=== PATIENT | male | born 1970 | race Caucasian/White ===

== ENCOUNTER 2018-12-19 16:54 | Emergency (ER) | payer BC ==
[2018-12-19 17:07] VITALS: BP 167/132; PULSE 84; RESP 16; TEMP 97.8
--- NOTE | 2018-12-19 17:36 | XR ---
PROCEDURE: XR finger RT - 3V DATE AND TIME: 12/19/2018 5:26 PM CLINICAL INDICATION: PHH; middle, r/o foreign body TECHNIQUE: AP and lateral and oblique middle finger radiographs. COMPARISON: None FINDINGS: Bones and joints: There is no fracture or malalignment. The bones and joints are unremarkable. Soft tissues: There is mild diffuse soft tissue swelling. There is curvilinear linear metallic opacit y related to the fingertip, seen on all views. No other metallic opacity. IMPRESSION: Fingertip curvilinear metallic opacity.
--- NOTE | 2018-12-19 17:43 | ED ---
Wound/Laceration HPI - General Chief Complaint: Wound/Laceration Stated Complaint: laceration on rt middle finger Time Seen by Provider: 12/19/18 16:57 Source: patient Mode of arrival: ambulatory Limitations: no limitations - History of Present Illness Initial Comments: 48-year-old male presenting for chief complaint of right middle finger laceration. He states he was at home when he reached into a bucket of metal he states his right middle finger was caught he is not sure on what. Patient states that there is a flap of skin. Patient states that he is able to fully range at the finger he denies any weakness. Patient states bleeding is controlled he applied a bandage. Patient denies numbness tingling or loss sensation. Patient denies any other areas of injury. Patient states his tetanus is updated last year. - Related Data Previous Rx's Medication Instructions Recorded Cephalexin [Keflex] 500 mg PO Q12HR 5 Days #10 cap 12/19/18 Allergies Allergy/AdvReac Type Severity Reaction Status Date / Time No Known Allergies Allergy Verified 12/19/18 17:07 Review of Systems ROS Statement: Those systems with pertinent positive or pertinent negative responses have been documented in the HPI. ROS Other: All systems not noted in ROS Statement are negative. Past Medical History Past Medical History: No Reported History History of Any Multi-Drug Resistant Organisms: None Reported Past Surgical History: Orthopedic Surgery Past Psychological History: No Psychological Hx Reported Smoking Status: Current every day smoker Past Alcohol Use History: Occasional Past Drug Use History: None Reported General Exam - General Exam Comments Initial Comments: General: The patient is awake and alert, in no distress, and does not appear acutely ill. Eye: Pupils are equal, round and reactive to light, extra-ocular movements are intact. No nystagmus. There is normal conjunctiva bilaterally. No signs of icterus. Cardiovascular: There is a regular rate and rhythm. No murmur, rub or gallop is appreciated. Respiratory: Lungs are clear to auscultation, respirations are non-labored, breath sounds are equal. No wheezes, stridor, rales, or rhonchi. Musculoskeletal: Normal ROM, no tenderness. Strength 5/5. Sensation intact. Radial pulses equal bilaterally 2+. Neurological: A&O x 3. CN II-XII intact, There are no obvious motor or sensory deficits. Coordination appears grossly intact. Speech is normal. Skin: Skin is warm and dry and no rashes or lesions are noted. [id number] circular skin flap over the knuckle of the PIP joint. No evidence of tendon exposure, foreign body. Superficial. Bleeding controlled. Psychiatric: Cooperative, appropriate mood & affect, normal judgment. Limitations: no limitations Course Vital Signs 12/19/18 17:03 Temperature 97.8 F Pulse Rate 84 Respiratory 16 Rate Blood Pressure 167/132 O2 Sat by Pulse 98 Oximetry Procedures - Laceration Laceration #1 Consent Obtained: verbal consent Indication: laceration Site: hand (Middle finger) Description: flap, irregular Pre-repair: wound explored, irrigated extensively, deep structures intact Type of Sutures: nylon Size of Sutures: 5-0 Number of Sutures: 3 Technique: simple, interrupted Patient Tolerated Procedure: well, no complications Additional Comments: irrigated, cleansesd prior. Discussed local numbing agents, patient prefer to continue without lidocaine given sutures estimated to be 3 and he states he "hated the lidocaine last time". tolerated procedure well. flap tacked down. no evidence of tendon injury, Medical Decision Making - Medical Decision Making 48-year-old male presenting for laceration. Evidence of skin flap on examination. No evidence of tendon injury or foreign body. There is metal under nails. He works with metals otherwise on imaging studies ears no acute osseous injury. Patient has full range of motion at MTP, DIP and PIP joints. No decrease in strength. Patinent NV intact. Patient appears well. laceration repaired. patient tetanus UTD> Patient discharged after discussing signs of infection, return parameters. Disposition Clinical Impression: Flap laceration of skin, Finger laceration Disposition: HOME SELF-CARE Condition: Good Instructions (If sedation given, give patient instructions): Care For Your Stitches (ED), Finger Laceration (ED) Additional Instructions: Please use medication as discussed. Please follow-up in 7 days for removal of sutures. Dont submerge hand in baths, ponds, pools, or any water. Showers are allowed. Changed bandage daily. Please return to emergency room if the symptoms increase or worsen or for any other concerns, including any type of limitations in movement of finger or in strength of finger. Prescriptions: Cephalexin [Keflex] 500 mg PO Q12HR 5 Days #10 cap Is patient prescribed a controlled substance at d/c from ED?: No Referrals: Judd Anna MD [Primary Care Provider] - 1-2 days Time of Disposition: 18:01
== END 2018-12-19 18:06 | disposition home or self-care (01) ==
LOC: EC 16:54
DX: S61.212A Laceration without foreign body of right middle finger without damage to nail, initial encounter (principal); F17.200 Nicotine dependence, unspecified, uncomplicated; W26.9XXA Contact with unspecified sharp object(s), initial encounter
CPT/HCPCS: 12001; 99283

== ENCOUNTER → 2023-01-05 | Outpatient (CLI) | payer OTHER ==
--- NOTE | 2023-01-05 15:32 | CT ---
EXAMINATION TYPE: CT upper extremity LT wo con CT DLP: 105.6 mGycm, Automated exposure control for dose reduction was used. 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 Additional c oronal and sagittal reformatted images and soft tissue and bone window were obtained for review. FINDINGS: Postsurgical changes of the left thumb with fixation screw crossing the first digit DIP ana maría nt. There is fusion of the joint. No surrounding periprostatic lucency. No acute fracture or dislocat ion. No soft tissue swelling. IMPRESSION: 1. Post surgical changes from fixation of the first digit DIP joint. There is fusion changes identif ied. 2. No acute fracture or dislocation.
== END | disposition home or self-care (01) ==
LOC: RADCTMAIN 14:56
PROVIDERS: ATTEND Orthopaedic Surgery Hand Surgery
DX: S62.52 Fracture of distal phalanx of thumb (principal)

== ENCOUNTER → 2023-01-25 | Outpatient (CLI) | payer OTHER ==
[2023-01-25 16:32] LABS: Basophils # (A) 0.09 X 10*3/uL (0.00-0.10); Basophils % (A) 1.1 %; Eosinophils # (A) 0.19 X 10*3/uL (0.04-0.35); Eosinophils % (A) 2.3 %; HCT 49.1 % (39.6-50.0); HGB 16.7 d/dL (13.0-17.0); Lymphocytes # (A) 1.73 X 10*3/uL (0.90-5.00); Lymphocytes % (A) 20.9 %; MCH 32.2 pg (27.0-32.0); MCV 94.6 FL (80.0-97.0); Mean Platelet Volume 9.4 FL (9.5-12.2); Monocytes # (A) 0.65 X 10*3/uL (0.20-1.00); Monocytes % (A) 7.9 %; NRBC Per 100 WBC 0 X 10*3/uL (0.00-0.01); Neutrophils # (A) 5.55 X 10*3/uL (1.80-7.70); Neutrophils % (A) 67.2 %; Platelet Count 238 X 10*3/uL (140-440); RBC 5.19 X 10*6/uL (4.40-5.60); RDW 12.3 % (11.5-14.5); WBC 8.26 X 10*3/uL (4.50-10.00)
[2023-01-25 16:53] LABS: Blood Urea Nitrogen 10.5 mg/dL (9.0-27.0); Calcium 9.7 mg/dL (8.7-10.3); Carbon Dioxide 26.1 mmol/L (21.6-31.8); Chloride 99 mmol/L (96-109); Glucose 99 mg/dL (70-110); Potassium 4.6 mmol/L (3.5-5.5); Sodium 136 mmol/L (135-145)
== END | disposition home or self-care (01) ==
LOC: LABWHC1 08:17
PROVIDERS: ATTEND Orthopaedic Surgery Hand Surgery
DX: Z01.812 Encounter for preprocedural laboratory examination (principal); I49.8 Other specified cardiac arrhythmias; I51.7 Cardiomegaly; R94.31 Abnormal electrocardiogram [ECG] [EKG]
CPT/HCPCS: 36415; 80048; 85025; 93005

== ENCOUNTER 2023-02-08 12:35 | Day surgery (SDC) | payer OTHER ==
--- NOTE | 2023-02-07 10:38 | P.HPOR ---
History of Present Illness H&P Date: 02/07/23 Subjective: This is a 52 year old male that presents today for initial evaluation regarding a long-standing history of left thumb pain. Patient states originally he underwent a left thumb IP joint fusion in [address] desai due to posttraumatic arthritis. At that time he thinks the arthrodesis procedure was performed with temporary K wires and states that he was in a cast for 9 months afterwards. After successful fusion was achieved he states he had no issues up until 1 year ago. He was then been seen by Dr. Allan Saeed and recently underwent a revision left thumb IP joint arthrodesis on 09/02/2022 due to a fracture that occurred through the arthrodesis site, per the patient. Patient states since the most recent revision arthrodesis he is unhappy with the appearance of the thumb due to the significant amount of angulation in regards to the flexion and radial deviation that the thumb was fused in. He also has a significant amount of pain over the dorsal aspect of the thumb and feels that the screw head is prominent. He denies any new or recent injury since his most recent surgery in August.He states it is effecting his ability to pinch and grasp due to the thumb point in the opposite direction of the index finger. Physical Examination: LUE: AIN/PIN/Radial/Ulnar/Median motor intact. Radial/Ulnar/Median SILT. 2+/4 Radial/Ulnar pulses palpated. 5/5 APB, 5/5 FDI. Negative Finkelsteins, negative CMC grind, negative Durkan's compression. Thumb held in 40 degrees of flexion, 15 degrees of radial deviation at IP joint with TTP over dorsal thumb. Post surgical scarring seen. No appreciable motion at the fusion site. Imaging: X-Rays of the left thumb 2 view taken in the office today demonstrates a left thumb IP joint arthrodesis with headless screw compression fixation. On AP, there is approximately 13 of radial deviation and 42 of thumb IP flexion visible on lateral. Prominence of IP joint screw head. 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 I explained the complexity of the situation. The roughly 40 degrees of flexion and 15 degrees of coronal malalignment are causing him significant functional deficits and he still has a considerable amount of pain on a daily basis. I recommend a computed tomography scan for evaluation of nonunion. We discussed the overall alignment of the thumb could be improved and that I would aim to revise the arthrodesis to approximately 15-20 of thumb IP flexion with neutral coronal alignment. This would likely have to involve removing the current headless compression screw and using autologous versus allograft bone graft to fill the void, followed by temporary K wire fixation until fusion is seen. Risks and benefits of surgery including bleeding, infection, nonunion, damage to surrounding tissue, need for further surgery, residual numbness were discussed and the patient wished to go forward with surgery. He is scheduled for a left thumb IP joint arthrodesis with bone graft and left thumb deep orthopedic implant removal. The patient was agreeable with this plan. CC: Trista Bhakta MD -Se Espinoza DO Orthopedic Hand/Upper Extremity Surgeon Past Medical History Past Medical History: No Reported History History of Any Multi-Drug Resistant Organisms: None Reported Past Surgical History: Orthopedic Surgery Additional Past Surgical History / Comment(s): SEPTEMBER 02, 2022 REPAIR OF LEFT THUMB BAD RESULTS (DONE AT [facility]). Past Anesthesia/Blood Transfusion Reactions: No Reported Reaction Past Psychological History: No Psychological Hx Reported Smoking Status: Current every day smoker Past Alcohol Use History: Occasional Additional Past Alcohol Use History / Comment(s): SMOKED SINCE 16 YR. 3/4 PPD. Past Drug Use History: None Reported - Past Family History Mother Family Medical History: CVA/TIA Medications and Allergies Home Medications Medication Instructions Recorded Confirmed Type No Known Home Medications 02/03/23 02/03/23 History Allergies Allergy/AdvReac Type Severity Reaction Status Date / Time bee venom protein (honey bee) Allergy Swelling Verified 02/03/23 15:20 Physical Examination Osteopathic Statement: *. No significant issues noted on an osteopathic structural exam other than those noted in the History and Physical/Consult.
[~2023-02-08 12:35] MED LIST: DEXAMETHASONE SOD PHOSPHATE 4 MG/ML 1 ML VIAL IV ONE; HYDROmorphone 0.5 MG/0.5 ML SYRINGE IVP PRN; LACTATED RINGERS 1,000 ML IV SCH; LIDOCAINE 1% (10MG/ML) FOR IV START INTRADERMA PRN; ONDANSETRON 4 MG/2 ML VIAL IVP ONE; droPERidol 5 MG/2 ML VIAL IVP ONE
[2023-02-08] MEDS ORDERED: LIDOCAINE 2% INJ 20 MG/ML (2 ML VIAL) ONE (14:46)
[2023-02-08] MEDS ORDERED: fentaNYL (PF) 50 MCG/ML 2 ML AMP ONE (14:46)
[2023-02-08] MEDS ORDERED: HYDROmorphone (PF) 1 MG/ML ONE (14:46)
[2023-02-08] MEDS ORDERED: MIDAZOLAM 2 MG/2 ML VIAL ONE (14:46)
[2023-02-08] MEDS ORDERED: PROPOFOL 10 MG/ML 20 ML VIAL IV ONE (14:46)
[2023-02-08] MEDS ORDERED: BUPIVACAINE (PF) 0.5% 30 ML VIAL SQ ONE ×2 (15:04→15:57)
[2023-02-08 16:12] VITALS: TEMP 98.6
[2023-02-08] MEDS ORDERED: HYDROmorphone 0.5 MG/0.5 ML SYRINGE IVP ONE (16:32)
[2023-02-08] MEDS ORDERED: HYDROcodone/APAP 5-325MG 1 EACH TAB ONE (16:39)
[2023-02-08] MEDS ORDERED: HYDROcodone/APAP 5-325MG 1 EACH TAB PO ONE (16:45)
[2023-02-08 16:48] VITALS: PULSE 99
[2023-02-08 17:11] VITALS: BP 171/83; RESP 15
--- NOTE | 2023-02-08 17:21 | P.OP ---
Date of Procedure: 02/08/23 Preoperative Diagnosis: 1.) Left thumb IP joint arthrodesis malunion 2.) Left thumb painful orthopedic implant Postoperative Diagnosis: 1.) Left thumb IP joint arthrodesis malunion 2.) Left thumb painful orthopedic implant Procedure(s) Performed: 1.) Left thumb IP joint revision arthrodesis (58415-31) 2.) Left thumb painful deep orthopedic implant removal (08308) Implants: 0.062 K-wire x 2 Anesthesia: GETA Surgeon: Se Espinoza Display Associate #1: Marshall Torrez Estimated Blood Loss (ml): 0 Pathology: none sent Condition: stable Disposition: PACU Description of Procedure: This is a 52 year old male with history of 2 prior left thumb IP joint arthrodesis performed over the last 10 years with the most recent going onto a painful malunion with a prominent screw head across the arthrodesis site that presents today for a revision left thumb IP joint arthrodesis and removal of deep orthopedic implant. Risks and benefits of surgery were discussed with the patient including bleeding, damage to surrounding tissue, infection, need for further surgery as well as risks of anesthesia including pulmonary embolism and even and the patient wished to proceed with surgical intervention. The patient was seen in the pre-operative area by myself. Consent and H&P were completed and updated. The correct extremity was marked in the pre-operative area by myself and all other questions were answered. Operative Narrative: The patient was brought to the operating room by the department of anesthesia. They remained on the portable stretcher and a rolling hand table was brought to the side of the operative extremity. Pre-operative time out was performed indicating the correct patient, procedure and laterality. All in the room agreed. Pre-operative antibiotics were given prior to skin incision. The patient was then drifted off to sleep by the department of anesthesia. A nonsterile tourniquet was then applied to the operative extremity and the left upper extremity was then prepped and draped in normal sterile fashion. The op erative extremity was the exsanguinated with an esmarch bandage and the tourniquet was inflated to 250mmHg. 15 blade scalpel was utilized to make a longitudinal incision over the IP joint of the thumb. Sharp dissection was taken down though subcutaneous tissues. Extensor tendon was identified and this was split longitudinally at the site of the previous split and old sutures in the tendon were excised. This revealed the headless compression screw head which was irritation the soft tissues around the screw head. 15 blade was utilized to excised surrounding scar tissues from the screw head to clear the head of the screw for removal. A T15 screwdriver was utilized to remove the Synthes 3.5mm headless compression screw successfully. After screw removal, mini C-arm was utilized to identify the joint line of the thumb IP joint and this was marked with a marking pen. There was solid fusion across the IP joint however the fusion occured with roughly 25 degrees of radial deviation and around 40 degrees of flexion. Rongeur was utilized to take down the arthrodesis site to fresh bleeding bone once the osteotomy was complete care was taken to remove slightly more bone from the ulnar side in order to correct the joint line alignment and correct the radial deviation. Once joint line was found to be level, the thumb IP joint was reduced in 15-20 degrees of flexion and held in neutral deviation. 2 0.062 K-wires were then inserted in a antegrade fashion in a crossed manner. Axial compression across the thumb IP joint was performed and no joint space was able to be visualized with good compression across the osteotomy site, there was no room for bone graft due to good compression at the joint. The k-wires were then advanced out the distal volar skin and edges were cut and pin caps were placed. Final imaging was performed confirming neutral deviation, 15-20 degrees of thumb IP flexion and good compression at the arthrodesis site. The wound was then irrigated and EPL split was sutured with 4- Monocryl suture followed by the skin with 4-0 nylon suture and a soft dressing was placed consisting of adaptic, 4x4s and thumb spica splint. Tourniquet was let down and the hand had immediate perfusion. The patient was then woken by the department of anesthesia and transferred to PACU in stable condition. Marshall AMOS was present for the case to assist in hardware placement and other kirkpatrick portions of the case. Modifier 22 is requested due to the increased technical difficulty of the case compared to a primary IP joint arthrodesis due to this being a revision of a revision arthrodesis with implant removal. Se Espinoza D.O. Orthopedic Hand/Upper Extremity Surgeon
== END 2023-02-08 17:05 | disposition home or self-care (01) ==
LOC: OR 12:35
PROVIDERS: ATTEND Orthopaedic Surgery Hand Surgery
DX: T84.84XA Pain due to internal orthopedic prosthetic devices, implants and grafts, initial encounter (principal); F17.210 Nicotine dependence, cigarettes, uncomplicated; F10.90 Alcohol use, unspecified, uncomplicated; Z98.1 Arthrodesis status; Z91.030 Bee allergy status; Y83.8 Other surgical procedures as the cause of abnormal reaction of the patient, or of later complication, without mention of misadventure at the time of the procedure
CPT/HCPCS: 26850; 20680; J2250; J1100; J0690; J2405; J3010; J1170 ×2; J2704; J2001; J0665